=== PATIENT | female | born 1960 | race African-American/Black ===

== ENCOUNTER 2019-07-12 22:17 | Emergency (ER) | payer OTHER ==
[~2019-07-12] VITALS: Ht 162.6 cm; Wt 71.7 kg
[~2019-07-12 22:17] MED LIST: ACIDOPHILUS LA1 EACH PO; ALEVE220 M1 PO; ALPRAZOLAM 0.0.25 M1 PO; AMITRIPTYLINE H10 M1 PO; FLAGYL 250 MG250 MG PO; LISINOPRIL10 MG PO; NAPROSYN500 MG PO; PREDNISONE 20 M20 MG PO; VANCOMYCIN250 MG/5 M PO
[2019-07-12] MEDS ORDERED: LISINOPRIL20 MG PO (23:34)
[2019-07-12] MEDS ORDERED: TRAMADOL 50 MG50 MG PO (23:43)
[2019-07-13 00:18] VITALS: BP 130/74
== END 2019-07-13 00:20 | disposition home or self-care (01) ==
LOC: ER 22:17
DX: S92.352A Displaced fracture of fifth metatarsal bone, left foot, initial encounter for closed fracture (principal); I10 Essential (primary) hypertension; Z90.710 Acquired absence of both cervix and uterus; Z79.899 Other long term (current) drug therapy; W10.9XXA Fall (on) (from) unspecified stairs and steps, initial encounter; Y93.89 Activity, other specified; Y92.89 Other specified places as the place of occurrence of the external cause; Y99.9 Unspecified external cause status

== ENCOUNTER 2020-12-14 10:52 | Emergency (ER) | payer OTHER ==
[~2020-12-14] VITALS: Ht 162.6 cm; Wt 72.6 kg
[~2020-12-14 10:52] MED LIST changes: +LISINOPRIL20 MG PO; +TRAMADOL 50 MG50 MG PO
[2020-12-14 11:29] LABS: ABSOLUTE NEUTROPHILS 2.9 thou/uL (1.4-8.2); BASOPHILS 0.8 % (0.0-2.0); EOSINOPHILS 1.1 % (0.0-3.0); HEMATOCRIT 37.2 % (37.0-47.0); HEMOGLOBIN 11.9 gm/dL (12.0-15.0); LYMPHOCYTES 35.1 % (24.0-44.0); MCH 29.3 pg (26.0-34.0); MCV 91.6 fL (80.0-100.0); MONOCYTES 9.1 % (1.0-8.0); PLATELET COUNT 283 thou/uL (150-400); POLYS 53.9 % (36.0-66.0); RBC 4.06 mil/uL (4.20-5.00); RDW 13.6 % (10.5-14.5); WBC 5.5 thou/uL (4.0-11.0)
[2020-12-14 11:42] LABS: CALCIUM 8.8 mg/dL (8.5-10.1); CREATININE 0.8 mg/dL (0.6-1.0); POTASSIUM 3.7 mmol/L (3.5-5.1)
[2020-12-14 11:50] LABS: ALBUMIN 3.7 g/dL (3.4-5.0); TOTAL BILIRUBIN 0.5 mg/dL (0.2-1.0); TOTAL PROTEIN 7.4 g/dL (6.4-8.2)
--- NOTE | 2020-12-14 12:05 | EKG ---
[address] [place] [address] ELECTROCARDIOGRAM REPORT Name: ABILIO LINARES Room [facility]: [id number] Admission: 12/14/20 Attend Phys: Discharge: Date of : 58 Report #: [id number] [facility] ED Test Date: 2020-12-14 Test Time: 11:14:17 Pat Name: ABILIO LINARES Department: Room: Gender: F [employer]: : 1960 Requested By: Gail Flores Order Number: [id number] MD: Sam Jerez Measurements Intervals [address] Rate: 54 P: 21 LA: 154 QRS: 9 QRSD: 83 T: 7 QT: 445 QTc: 422 Interpretive Statements Sinus rhythm Left ventricular hypertrophy Compared to ECG 09/22/2015 22:11:34 No significant changes Electronically Signed On 12-14-2020 12:05:09 CDT by Sam Jerez [email or web address] <ELECTRONICALLY SIGNED> By: Sam Jerez MD, [facility] 12/14/20 1205 1114 1114 Sam Jerez MD, FACLaurita /EPI
[2020-12-14 12:15] VITALS: BP 154/74
== END 2020-12-14 12:50 | disposition home or self-care (01) ==
LOC: ER 10:52
PROVIDERS: Emergency Medicine
DX: R07.89 Other chest pain (principal); I10 Essential (primary) hypertension; Z90.710 Acquired absence of both cervix and uterus; Z90.721 Acquired absence of ovaries, unilateral; Z79.899 Other long term (current) drug therapy